=== PATIENT | female | born 1950 | race Caucasian/White ===

== ENCOUNTER 2017-04-20 03:03 | Emergency (ER) | payer MEDICARE, OTHER ==
[~2017-04-20] VITALS: Ht 167.6 cm; Wt 89.4 kg
[~2017-04-20 03:03] MED LIST: ATARAX PO; CELEXA PO; CLARITIN10 MG PO; MYLANTA400 MG PO; SYNTHROID PO
[2017-04-20] MEDS ORDERED: TRAMADOL HCL50 M1 (03:17)
[2017-04-20] MEDS ORDERED: SEROQUEL50 M1 (03:17)
[2017-04-20] MEDS ORDERED: NEURONTIN300 MG (03:17)
[2017-04-20] MEDS ORDERED: PRAVACHOL (03:17)
== END 2017-04-20 04:10 | disposition home or self-care (01) ==
LOC: SED 03:03
DX: G57.93 Unspecified mononeuropathy of bilateral lower limbs (principal); F17.200 Nicotine dependence, unspecified, uncomplicated
CPT/HCPCS: 96372; 99283; J1100; J1885